=== PATIENT | female | born 1995 | race Caucasian/White ===

== ENCOUNTER 2020-04-21 02:28 | Emergency (ER) | payer OTHER, SELFPAY ==
[2020-04-21 02:38] VITALS: BP 122/74; PULSE 73; RESP 16; TEMP 36.8; O2SAT 100; BMI 32.9
[2020-04-21 02:51] VITALS: BP 122/74; PULSE 75; RESP 16; TEMP 36.8; O2SAT 100
--- NOTE | 2020-04-21 02:56 | ED.ABDPAIN ---
HPI - Abdominal Pain General Chief Complaint: Abdominal Pain Stated Complaint: LOWER ABD PAIN/NAUSEA Time Seen by Provider: 04/21/20 02:33 Source: patient Mode of arrival: ambulatory Limitations: no limitations History of Present Illness HPI narrative: This is a 24-year-old female without significant past medical history who presents with onset of acute left lower quadrant /pelvic pain this started approximately 4 hours ago is sharp in nature and constant and does not radiate anywhere. This is associated with nausea but no vomiting and patient denies fevers, chills, diarrhea, urinary pain/ burning / frequency. Her LMP is 2 weeks ago and patient states that there is no chance that she may be and denies any vaginal discharge. Of note, this is the 1st time this has happened to her. Related Data Home Medications Medication Instructions Recorded Confirmed sertraline 1 tab PO DAILY 04/21/20 04/21/20 Allergies Allergy/AdvReac Type Severity Reaction Status Date / Time fluoxetine [From PROZAC] Allergy Unknown UNKNOWN Verified 04/21/20 03:06 Review of Systems Review of Systems Pertinent positives and negatives as stated in HPI 10 point review systems is otherwise negative. Physical Exam Vital Signs: Vital Signs: Vital Signs Temp Pulse Resp BP Pulse Ox 04/21/20 02:51 98.2 F 75 16 122/74 100 04/21/20 02:38 98.2 F 73 16 122/74 100 Body Mass Index 32.9 VITAL SIGNS: Reviewed. GENERAL: Well developed, well nourished, in no acute distress. HEAD: Normocephalic/atraumatic, EYES: PERRLA, EOMI intact without pain, no nystagmus/pallor/icterus noted EARS: Ext canals without abnormality, TMs non-bulging and non-erythematous NOSE: Nares patent bilateral OROPHARYNX: no oral lesions noted, posterior pharynx clear and non-erythematous without noted tonsillar enlargement/erythema/exudates NECK: Supple, no adenopathy LUNGS: Normal breath sounds. No adventitious sounds or accessory muscle use. SpO2<100> CARDIOVASCULAR: Regular rate and rhythm without noted murmurs, no JVD or lower extremity edema. ABDOMEN: Soft, tenderness left lower quadrant, non-distended with bowel sounds. No rigidity. No guarding. No palpable masses or hernias noted MUSCULOSKELETAL: No tenderness, deformities, or effusions noted on gross inspection. EXTREMITIES: No cyanosis, clubbing or edema. SKIN: Inspection of the skin reveals no rashes, ulcerations, jaundice, pallor, or petechiae. NEUROLOGIC: Alert and oriented x 4. Strength and sensation to light touch were grossly intact x 4. Course Course Course Narrative: This is a 24-year-old female with history and clinical presentation most suggestive of possible renal colic, ovarian cyst, ovarian torsion, ectopic , mittelschmerz. Urinalysis, urine , transvaginal ultrasound are pending. review of all investigation negative for UTI, ectopic, ovarian torsion, ruptured ovarian cyst. All results and findings were discussed with patient at bedside and explained that this was a pain associated with midcycle. MDM - Abdominal Pain Lab Data Labs: Lab Results 04/21/20 Range/Units 02:48 Urine Color YELLOW Urine Appearance CLEAR Urine pH 6.5 (5.0-8.0) Ur Specific [place] >= 1.030 H (1.005-1.025) Urine Protein NEG (NEG-TRACE) MG/DL Urine Glucose (UA) NEG (NEG) MG/DL Urine Ketones NEG (NEG) MG/DL Urine Blood NEG (NEG) Urine Nitrite NEG (NEG) Ur Leukocyte Esterase NEG (NEG) Urine Test NEGATIVE (NEGATIVE) Discharge Plan Discharge Clinical Impression: Ki Patient Disposition: Home, Self-Care Instructions: Ki (ED) Additional Instructions: 1. Tylenol 1000 mg, orally, every 6 hours for discomfort. Do not exceed 4000 mg within 24 hours. 2. ibuprofen 400 mg, orally with milk or food, every 6 hours for discomfort. 3. you were noted to have the following findings on ultrasound with the radiologist recommending follow-up as outlined below: Bilateral ovarian follicles. Nonspecific 8 mm nodular shadow in echogenic focus within the right ovary which could correspond to a hemorrhagic cyst or corpus luteum. As precaution, recommendation is for a follow-up pelvic ultrasound in 6 or 10 weeks to assure resolution of this appearance. The patient and/or family acknowledge understanding of results (as applicable), diagnosis, treatment plan, need for follow up, and symptoms that should prompt a return to the emergency room. Prescriptions: No Action sertraline 100 mg tablet 1 tab PO DAILY RF: 0 Referrals: Lilian Solis MD [Primary Care Provider] - 2 days (For follow-up regarding right ovary findings On ultrasound.) [facility] Past Medical History Source: nursing notes reviewed Medical History Depression Hypothyroidism Social History Social History Smoking Status: Never smoker Use of substances other than those prescribed or required for medical reasons: No Advance Directives: No
--- NOTE | 2020-04-21 02:57 | US_ITS ---
EXAMINATIONS: ULTRASOUND PELVIC, COMPLETE AND DOPPLER INTERROGATION CLINICAL INFORMATION: Left-sided pelvic pain. Concern for torsion. COMPARISON: Abdominal pelvic CT from 05/16/2019. TECHNIQUE: Transabdominal and transvaginal imaging was performed. Transvaginal imaging was performed for further evaluation of the endometrium and adnexa. Doppler interrogation spectral analysis was performed. FINDINGS: The uterus is of normal size and echogenicity measuring 6.7 x 4.0 x 4.8 cm. A regular homogeneous endometrium is identified measuring 1.4 cm. Both ovaries are of normal size and echogenicity. The right measures 3.1 x 1.8 x 1.9 cm for a volume of 5.6 cc. There is an approximately 8 mm focus of oblong echogenicity without shadowing within the right ovary. The left measures 3.3 x 2.1 x 1.9 cm for a volume of 6.9 cc. Normal arterial and venous blood flow is present bilaterally. There is a small amount of likely physiologic pelvic free fluid. US/US transvaginal IMPRESSION: No evidence for ovarian torsion. Bilateral ovarian follicles. Nonspecific 8 mm nodular shadow in echogenic focus within the right ovary which could correspond to a hemorrhagic cyst or corpus luteum. As precaution, recommendation is for a follow-up pelvic ultrasound in 6 or 10 weeks to assure resolution of this appearance.
[2020-04-21 03:00] LABS: Glucose Urine UA NEG (NEG); Leukocyte Esterase Urine NEG (NEG); Nitrite Urine NEG (NEG); PH 6.5 (5.0-8.0); Specific Gravity - Urine >= 1.030 (1.005-1.025); Urine Blood NEG (NEG); Urine Ketones NEG (NEG); Urine Protein NEG (NEG-TRACE)
[2020-04-21 03:02] LABS: Appearance Urine CLEAR; Color Urine YELLOW; UPreg QC Valid YES; Urine Pregnancy NEGATIVE (NEGATIVE)
--- NOTE | 2020-04-21 03:09 | US_ITS ---
EXAMINATIONS: ULTRASOUND PELVIC, COMPLETE AND DOPPLER INTERROGATION CLINICAL INFORMATION: Left-sided pelvic pain. Concern for torsion. COMPARISON: Abdominal pelvic CT from 05/16/2019. TECHNIQUE: Transabdominal and transvaginal imaging was performed. Transvaginal imaging was performed for further evaluation of the endometrium and adnexa. Doppler interrogation spectral analysis was performed. FINDINGS: The uterus is of normal size and echogenicity measuring 6.7 x 4.0 x 4.8 cm. A regular homogeneous endometrium is identified measuring 1.4 cm. Both ovaries are of normal size and echogenicity. The right measures 3.1 x 1.8 x 1.9 cm for a volume of 5.6 cc. There is an approximately 8 mm focus of oblong echogenicity without shadowing within the right ovary. The left measures 3.3 x 2.1 x 1.9 cm for a volume of 6.9 cc. Normal arterial and venous blood flow is present bilaterally. There is a small amount of likely physiologic pelvic free fluid. US/US pelvic complete IMPRESSION: No evidence for ovarian torsion. Bilateral ovarian follicles. Nonspecific 8 mm nodular shadow in echogenic focus within the right ovary which could correspond to a hemorrhagic cyst or corpus luteum. As precaution, recommendation is for a follow-up pelvic ultrasound in 6 or 10 weeks to assure resolution of this appearance.
--- NOTE | 2020-04-21 03:09 | US_ITS ---
EXAMINATIONS: ULTRASOUND PELVIC, COMPLETE AND DOPPLER INTERROGATION CLINICAL INFORMATION: Left-sided pelvic pain. Concern for torsion. COMPARISON: Abdominal pelvic CT from 05/16/2019. TECHNIQUE: Transabdominal and transvaginal imaging was performed. Transvaginal imaging was performed for further evaluation of the endometrium and adnexa. Doppler interrogation spectral analysis was performed. FINDINGS: The uterus is of normal size and echogenicity measuring 6.7 x 4.0 x 4.8 cm. A regular homogeneous endometrium is identified measuring 1.4 cm. Both ovaries are of normal size and echogenicity. The right measures 3.1 x 1.8 x 1.9 cm for a volume of 5.6 cc. There is an approximately 8 mm focus of oblong echogenicity without shadowing within the right ovary. The left measures 3.3 x 2.1 x 1.9 cm for a volume of 6.9 cc. Normal arterial and venous blood flow is present bilaterally. There is a small amount of likely physiologic pelvic free fluid. US/US pelvic ovarian doppler IMPRESSION: No evidence for ovarian torsion. Bilateral ovarian follicles. Nonspecific 8 mm nodular shadow in echogenic focus within the right ovary which could correspond to a hemorrhagic cyst or corpus luteum. As precaution, recommendation is for a follow-up pelvic ultrasound in 6 or 10 weeks to assure resolution of this appearance.
[2020-04-21 04:00] VITALS: BP 112/68; PULSE 63; RESP 15; O2SAT 100
[2020-04-21] MEDS: Acetaminophen 325 MG TABLET 975 MG PO (04:49)
[2020-04-21] MEDS: Ketorolac Tromethamine 15 MG/ML VIAL IM (04:49)
--- NOTE | 2020-04-21 04:53 | PC.NURSE ---
patient given shot of toradol and became lightheaded and nausous. patient states that she often reacts to shots like this. bp 104/58
== END 2020-04-21 05:07 | disposition home or self-care (01) ==
PROVIDERS: Emergency Provider Student in an Organized Health Care Education/Training Program; PCP Internal Medicine
DX: N94.0 Mittelschmerz (principal); R10.30 Lower abdominal pain, unspecified; Z79.899 Other long term (current) drug therapy
CPT/HCPCS: 76830; 76856; 81003; 81025; 93975; 96372; 99284; J1885

== ENCOUNTER 2020-04-26 17:31 | Outpatient (REF) | payer OTHER, SELFPAY | END 2020-04-26 17:32 | disposition home or self-care (01) | LOC: HO.LAB 17:31 | PROVIDERS: Visit Provider Internal Medicine | DX: Z20.828 Contact with and (suspected) exposure to other viral communicable diseases (principal) | CPT/HCPCS: C9803; U0003 ==

== ENCOUNTER → 2020-08-18 11:04 | Outpatient (BNVA) | payer OTHER, SELFPAY | PROVIDERS: Visit Provider Obstetrics & Gynecology ==

== ENCOUNTER 2020-08-31 14:16 | Outpatient (REF) | payer OTHER, SELFPAY ==
[2020-09-01 09:54] LABS: BV Int Neg Control Negative (Negative); BV Int Pos Control Positive (Positive)
[2020-09-01 10:13] LABS: CT PCR NOT DETECTED (Not Detect.); NG PCR NOT DETECTED (Not Detect.)
== END 2020-08-31 14:17 | disposition home or self-care (01) ==
LOC: HO.LAB 14:16
PROVIDERS: PCP Internal Medicine; Visit Provider Obstetrics & Gynecology
DX: Z01.411 Encounter for gynecological examination (general) (routine) with abnormal findings (principal); N76.0 Acute vaginitis; B96.89 Other specified bacterial agents as the cause of diseases classified elsewhere
CPT/HCPCS: 87480; 87491; 87510; 87591; 87660; 88142

== ENCOUNTER 2020-09-16 11:44 | Outpatient (REF) | payer OTHER, SELFPAY ==
[2020-09-16 13:35] LABS: Influenza A PCR NEGATIVE (Negative); Influenza B PCR NEGATIVE (Negative); Resp Syncy Virus RNA Qual PCR NEGATIVE (Negative); SARS COV2 PCR INHOUSE NEGATIVE (Negative)
== END 2020-09-16 11:45 | disposition home or self-care (01) ==
LOC: HO.LNP 11:44
PROVIDERS: Visit Provider Nurse Practitioner Family
DX: R50.9 Fever, unspecified (principal); Z20.822 Contact with and (suspected) exposure to COVID-19
CPT/HCPCS: 0241U

== ENCOUNTER 2020-12-22 16:44 | Outpatient (REF) | payer OTHER, SELFPAY | END 2020-12-22 16:45 | disposition home or self-care (01) | LOC: HO.LNP 16:44 | PROVIDERS: Visit Provider Hospitalist | DX: R30.0 Dysuria (principal) | CPT/HCPCS: 87086 ==

== ENCOUNTER 2021-07-06 08:07 | Outpatient (REF) | payer OTHER, SELFPAY ==
[2021-07-06 13:08] LABS: CT PCR NOT DETECTED (Not Detect.); NG PCR NOT DETECTED (Not Detect.)
[2021-07-07 08:57] LABS: BV Int Neg Control Negative (Negative); BV Int Pos Control Positive (Positive)
== END 2021-07-06 08:08 | disposition home or self-care (01) ==
LOC: HO.LAB 08:07
PROVIDERS: PCP Internal Medicine; Visit Provider Obstetrics & Gynecology
DX: Z01.419 Encounter for gynecological examination (general) (routine) without abnormal findings (principal); Z11.3 Encounter for screening for infections with a predominantly sexual mode of transmission; Z11.4 Encounter for screening for human immunodeficiency virus [HIV]; Z20.2 Contact with and (suspected) exposure to infections with a predominantly sexual mode of transmission
CPT/HCPCS: 87480; 87491; 87510; 87591; 87660

== ENCOUNTER 2021-07-06 08:29 | Outpatient (REF) | payer OTHER, SELFPAY ==
[2021-07-06 09:54] LABS: HBsAGNum1 0.27 S/CO (0.00-0.99); HIV AB/AG Nonreactive (Nonreactive); HIV Num 1 0.08 S/CO (0.00-0.99); Hepatitis B Surface Antigen Negative (Negative); ~HepC Num1 0.15 S/CO (0.00-0.79); ~Hepatitis C Antibody Nonreactive (Nonreactive)
[2021-07-07 08:25] LABS: Syphilis Screen Nonreactive (Nonreactive)
== END 2021-07-06 08:30 | disposition home or self-care (01) ==
LOC: HO.LAB 08:29
PROVIDERS: PCP Internal Medicine; Visit Provider Obstetrics & Gynecology
DX: Z01.84 Encounter for antibody response examination (principal); Z11.4 Encounter for screening for human immunodeficiency virus [HIV]
CPT/HCPCS: 36415; 86780; 86803; 87340; 87389

== ENCOUNTER 2021-12-15 12:52 | Emergency (ER) | payer OTHER, SELFPAY ==
--- NOTE | ~2021-12-15 | XR_ITS ---
EXAMINATION: XR CHEST CLINICAL INFORMATION: Fever COMPARISON: None TECHNIQUE: Frontal view of the chest was obtained. FINDINGS: The cardiomediastinal silhouette is within normal limits. The lungs are well expanded. Mild peribronchial thickening. There is no focal consolidation, edema, or effusion. No pneumothorax. No acute osseous abnormality. XR/XR chest 1V IMPRESSION: Mild peribronchial thickening could reflect infectious or inflammatory process. No focal consolidation is seen.
[2021-12-15 13:07] VITALS: BP 126/77; PULSE 133; RESP 16; TEMP 38.6; O2SAT 97; BMI 43.9
[2021-12-15] MEDS: Acetaminophen 325 MG TABLET 650 MG PO (13:14)
[2021-12-15 13:29] LABS: Appearance Urine CLEAR; Color Urine YELLOW; Glucose Urine UA NEG (NEG); Leukocyte Esterase Urine NEG (NEG); MANUAL DIFF FLAG NO; Nitrite Urine NEG (NEG); PH 8.5 (5.0-8.0); Specific Gravity - Urine 1.015 (1.005-1.025); UACC Culture Trigger NO; Urine Blood 1+ (NEG); Urine Ketones NEG (NEG); Urine Protein NEG (NEG-TRACE)
[2021-12-15 13:30] LABS: UPreg QC Valid YES; Urine Pregnancy NEGATIVE (NEGATIVE)
[2021-12-15 13:31] LABS: Basophils Percent Auto 0.2 % (0-2); Eosinophils Absolute Auto 0.1 X10*3/uL (0.0-0.4); Eosinophils Percent Auto 0.7 % (0-4); Hematocrit 39.1 % (37.0-47.0); Hemoglobin 12.8 g/dl (12.0-16.0); Imm Gran Abs Auto 0.04 X10*3/uL (0.00-0.03); Imm Gran Pct Auto 0.3 % (0.0-0.4); Lymphocytes Absolute Auto 1.1 X10*3/uL (1.2-4.9); Lymphocytes Percent Auto 7.2 % (20-40); Mean Corpuscular HGB Conc 32.7 g/dl (31.0-35.0); Mean Corpuscular Hemoglobin 27.5 pg (27.0-33.0); Mean Corpuscular Volume 83.9 fL (80.0-98.0); Mean Platelet Volume 9.4 fL (9.4-12.3); Monocytes Absolute Auto 0.5 X10*3/uL (0.1-1.2); Monocytes Percent Auto 3.3 % (2-11); Neutrophils Absolute Auto 13.2 x10*3/uL (2.0-8.3); Neutrophils Percent Auto 88.3 % (45-73); Platelet Count 308 X10*3/uL (160-400); Red Blood Count 4.66 X10*6/uL (4.20-5.50); Red Cell Distribution Width 13.1 % (11.0-16.0); White Blood Count 14.9 X10*3/uL (4.8-10.8)
[2021-12-15 13:38] LABS: RBC Urine 0-2 /HPF (0); Squamous Epithelial Cell Urine 1+ /LPF; UACC CULT YES
[2021-12-15 13:46] LABS: Anion Gap 13 (12-20); Blood Urea Nitrogen 13 mg/dL (9-16); Carbon Dioxide 22 mmol/L (22-29); Chloride 104 mmol/L (96-108); Creatinine Clr Calc Pharmacy 119.7; Estimated Glomerular Filt Rate > 60; Glucose Random 111 mg/dL (60-115); Potassium 4.3 mmol/L (3.3-5.1); Sodium 135 mmol/L (135-145)
--- NOTE | 2021-12-15 17:10 | ED.GENADULT ---
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 patient temperature was 101.4 degrees complaining of nausea no cough no vomiting or diarrhea no abdominal pain no chest pain no rash patient in the home COVID test which was negative no urinary complaints Related Data Home Medications Medication Instructions Recorded Confirmed sertraline 100 mg tablet 1 tab PO DAILY 04/21/20 12/22/20 levothyroxine 75 mcg capsule 75 mcg PO DAILY 08/31/20 12/22/20 metronidazole 0.75 % vaginal gel g vaginal BEDTIME 09/16/20 12/22/20 Previous Rx's Medication Instructions Recorded amoxicillin 500 mg-potassium 1 tab PO BID 7 days #14 tabs 09/16/20 clavulanate 125 mg tablet sulfamethoxazole 800 1 tab PO BID #14 tabs 12/22/20 mg-trimethoprim 160 mg tablet (Bactrim DS) metronidazole 0.75 % vaginal gel 1 appful vaginal BEDTIME 5 days 07/07/21 (Metrogel Vaginal) #70 grams metronidazole 500 mg tablet 500 mg PO BID 7 days #14 tabs 09/06/21 cefuroxime axetil 500 mg tablet 500 mg PO BID 10 days #20 tabs 12/15/21 ibuprofen 600 mg tablet 600 mg PO Q6H PRN pain #30 tabs 12/15/21 Allergies Allergy/AdvReac Type Severity Reaction Status Date / Time fluoxetine [From PROZAC] Allergy Unknown UNKNOWN Verified 07/06/21 08:17 Review of Systems Review of Systems: Yes all other systems are reviewed and are negative PMFSH Past Medical History Medical History CELESTE I (cervical intraepithelial neoplasia I) Depression Hypothyroidism Family History Family History Maternal Aunt Colon cancer Maternal Grandmother Colon cancer Uterine cancer Cervical cancer Maternal Grandfather Bladder cancer Social History Social History Alcohol intake: never Advance Directives: No Advance Directives Information Provided: No Gender identity: Female Physical Exam ED Vital Signs: Vital Signs - 24 hr 12/15/21 13:07 12/15/21 17:55 Temperature 101.4 F H 98.5 F Pulse Rate 133 H 92 Respiratory Rate 16 14 Blood Pressure 126/77 110/64 Pulse Oximetry 97 99 Oxygen Delivery Method Room Air Room Air BMI result Body Mass Index 43.9 Appearance: Alert. Oriented X3. No acute distress. Eyes: PERRLA, No Nystagmus ENT: Pharynx normal. Oral Mucosa moist Neck: Normal inspection. Neck supple. CVS: Normal heart rate and rhythm. Pulses normal. Respiratory: No respiratory distress. Equal air entry bilateral, no wheezing/rales/rhonchi Abdomen: Soft and nontender. Bowel sounds are present, no mass palpable, no CVA tenderness Skin: Skin warm and dry. Normal skin color. Normal skin turgor. Extremities: No lower extremity edema. No calf tenderness Neuro: Oriented X 3. Medical Decision Making MDM Narrative Medical decision making narrative: Patient with fever leukocytosis chest x-ray showing peribronchial inflammation patient denies any cough PCR negative for COVID influenza will discharge patient home on Ceftin for bronchitis Lab Data Lab results reviewed: Yes I reviewed the patient's lab results. Result diagrams: 12/15/21 13:22 12/15/21 13:22 Labs: Lab Results 12/15/21 12/15/21 12/15/21 Range/Units 13:22 13:22 13:22 WBC 14.9 H (4.8-10.8) X10*3/uL RBC 4.66 (4.20-5.50) X10*6/uL Hgb 12.8 (12.0-16.0) g/dl Hct 39.1 (37.0-47.0) % MCV 83.9 (80.0-98.0) fL MCH 27.5 (27.0-33.0) pg MCHC 32.7 (31.0-35.0) g/dl RDW 13.1 (11.0-16.0) % Plt Count 308 (160-400) X10*3/uL MPV 9.4 (9.4-12.3) fL Immature Gran % (Auto) 0.3 (0.0-0.4) % Neut % (Auto) 88.3 H (45-73) % Lymph % (Auto) 7.2 L (20-40) % [place] % (Auto) 3.3 (2-11) % Eos % (Auto) 0.7 (0-4) % Baso % (Auto) 0.2 (0-2) % Lymph # (Auto) 1.1 L (1.2-4.9) X10*3/uL [place] # (Auto) 0.5 (0.1-1.2) X10*3/uL Eos # (Auto) 0.1 (0.0-0.4) X10*3/uL Baso # (Auto) 0.0 (0.0-0.2) X10*3/uL Abs Immat Gran (auto) 0.04 H (0.00-0.03) X10*3/uL Absolute Neuts (auto) 13.2 H (2.0-8.3) x10*3/uL Absolute Nucleated RBC 0.000 (0.0-0.012) X10*3/uL Nucleated RBC % (auto) 0.0 (0.0-0.2) /100WBC Sodium 135 (135-145) mmol/L Potassium 4.3 (3.3-5.1) mmol/L Chloride 104 (96-108) mmol/L Carbon Dioxide 22 (22-29) mmol/L Anion Gap 13 (12-20) BUN 13 (9-16) mg/dL Creatinine 0.82 (0.5-1.4) mg/dL Estim Creat Clear Calc 119.7 Estimated GFR > 60 Random Glucose 111 (60-115) mg/dL Calcium 9.0 (8.4-10.2) mg/dL Total Bilirubin 0.5 (0.0-1.0) mg/dL Direct Bilirubin 0.2 (0.0-0.5) mg/dL AST 28 (5-31) U/L ALT 20 (0-31) U/L Alkaline Phosphatase 108 (39-117) U/L Total Protein 7.5 (6.5-8.0) g/dL Albumin 4.3 (3.5-5.0) g/dL Lipase 25 (8-78) U/L Urine Color YELLOW Urine Appearance CLEAR Urine pH 8.5 H (5.0-8.0) Ur Specific [place] 1.015 (1.005-1.025) Urine Protein NEG (NEG-TRACE) MG/DL Urine Glucose (UA) NEG (NEG) MG/DL Urine Ketones NEG (NEG) MG/DL Urine Blood 1+ H (NEG) Urine Nitrite NEG (NEG) Ur Leukocyte Esterase NEG (NEG) Urine RBC 0-2 (0) /HPF Urine WBC 5-9 H (0-4) /HPF Ur Squamous Epith Cells 1+ /LPF Urine Bacteria NONE /LPF Urine Test (NEGATIVE) COVID-19 ([place]) (Negative) COVID-19 Clin Com Influenza Type A (PCR) (Negative) Influenza Type B (PCR) (Negative) RSV RNA Qual (PCR) (Negative) SARS-CoV-2 RNA (RT-PCR) (Negative) 12/15/21 12/15/21 12/15/21 Range/Units 13:22 17:53 18:58 WBC (4.8-10.8) X10*3/uL RBC (4.20-5.50) X10*6/uL Hgb (12.0-16.0) g/dl Hct (37.0-47.0) % MCV (80.0-98.0) fL MCH (27.0-33.0) pg MCHC (31.0-35.0) g/dl RDW (11.0-16.0) % Plt Count (160-400) X10*3/uL MPV (9.4-12.3) fL Immature Gran % (Auto) (0.0-0.4) % Neut % (Auto) (45-73) % Lymph % (Auto) (20-40) % [place] % (Auto) (2-11) % Eos % (Auto) (0-4) % Baso % (Auto) (0-2) % Lymph # (Auto) (1.2-4.9) X10*3/uL [place] # (Auto) (0.1-1.2) X10*3/uL Eos # (Auto) (0.0-0.4) X10*3/uL Baso # (Auto) (0.0-0.2) X10*3/uL Abs Immat Gran (auto) (0.00-0.03) X10*3/uL Absolute Neuts (auto) (2.0-8.3) x10*3/uL Absolute Nucleated RBC (0.0-0.012) X10*3/uL Nucleated RBC % (auto) (0.0-0.2) /100WBC Sodium (135-145) mmol/L Potassium (3.3-5.1) mmol/L Chloride (96-108) mmol/L Carbon Dioxide (22-29) mmol/L Anion Gap (12-20) BUN (9-16) mg/dL Creatinine (0.5-1.4) mg/dL Estim Creat Clear Calc Estimated GFR Random Glucose (60-115) mg/dL Calcium (8.4-10.2) mg/dL Total Bilirubin (0.0-1.0) mg/dL Direct Bilirubin (0.0-0.5) mg/dL AST (5-31) U/L ALT (0-31) U/L Alkaline Phosphatase (39-117) U/L Total Protein (6.5-8.0) g/dL Albumin (3.5-5.0) g/dL Lipase (8-78) U/L Urine Color Urine Appearance Urine pH (5.0-8.0) Ur Specific [place] (1.005-1.025) Urine Protein (NEG-TRACE) MG/DL Urine Glucose (UA) (NEG) MG/DL Urine Ketones (NEG) MG/DL Urine Blood (NEG) Urine Nitrite (NEG) Ur Leukocyte Esterase (NEG) Urine RBC (0) /HPF Urine WBC (0-4) /HPF Ur Squamous Epith Cells /LPF Urine Bacteria /LPF Urine Test NEGATIVE (NEGATIVE) COVID-19 ([place]) Negative (Negative) COVID-19 Clin Com See Note Influenza Type A (PCR) NEGATIVE (Negative) Influenza Type B (PCR) NEGATIVE (Negative) RSV RNA Qual (PCR) NEGATIVE (Negative) SARS-CoV-2 RNA (RT-PCR) NEGATIVE (Negative) Discharge Plan Discharge Clinical Impression: Fever, Bronchitis Patient Disposition: Home, Self-Care Instructions: Fever in Adults (ED), Acute Bronchitis (ED) Additional Instructions: Keep hydrated Tylenol/Motrin for fever Antibiotic as prescribed Follow with PCP if not better Prescriptions: New cefuroxime axetil 500 mg tablet 500 mg PO BID 10 Days Qty: 20 0RF ibuprofen 600 mg tablet 600 mg PO Q6H PRN (Reason: pain) Qty: 30 0RF No Action metronidazole [Metrogel Vaginal] 0.75 % gel 1 appful vaginal BEDTIME 5 Days Qty: 70 0RF metronidazole 500 mg tablet 500 mg PO BID 7 Days Qty: 14 0RF sertraline 100 mg tablet 1 tab PO DAILY metronidazole 0.75 % gel vaginal BEDTIME amoxicillin-pot clavulanate 500-125 mg tablet 1 tab PO BID 7 Days Qty: 14 0RF sulfamethoxazole-trimethoprim [Bactrim DS] 800-160 mg tablet 1 tab PO BID Qty: 14 0RF levothyroxine 75 mcg capsule 75 mcg PO DAILY Interventions: ED Discharge Assessment Last Done: 12/15/21 21:24 Discharge Date/Time: 12/15/21 21:25
[2021-12-15 17:55] VITALS: BP 110/64; PULSE 92; RESP 14; TEMP 36.9; O2SAT 99
[2021-12-15] MEDS: 0.9 % Sodium Chloride 1,000 ML 999 ML IV (18:23)
[2021-12-15 18:28] LABS: COVID-19 Test Negative (Negative)
[2021-12-15] MEDS: ondansetron HCL 4 MG/2 ML VIAL IVPUSH (18:31)
[2021-12-15 19:11] LABS: Alanine Aminotransferase 20 U/L (0-31); Albumin Level 4.3 g/dL (3.5-5.0); Alkaline Phosphatase 108 U/L (39-117); Aspartate Amino Transferase 28 U/L (5-31); Bilirubin Direct 0.2 mg/dL (0.0-0.5); Bilirubin Total 0.5 mg/dL (0.0-1.0); Lipase 25 U/L (8-78); Total Protein 7.5 g/dL (6.5-8.0)
[2021-12-15 19:39] LABS: Influenza A PCR NEGATIVE (Negative); Influenza B PCR NEGATIVE (Negative); Resp Syncy Virus RNA Qual PCR NEGATIVE (Negative); SARS COV2 PCR INHOUSE NEGATIVE (Negative)
--- NOTE | 2021-12-15 21:20 | PC.NURSE ---
We assumed nursing care of this pt at 1900. I first assessed her at time of DC. She is alert, oriented x 3, calm and cooperative. She makes eye contact with RN. She is ambulatory independently and with steady gait. She verbalized an understanding of all DC orders and she ambulated out of the ED independently and with steady gait.
== END 2021-12-15 21:25 | disposition home or self-care (01) ==
PROVIDERS: Emergency Provider Internal Medicine; PCP Internal Medicine
DX: J40 Bronchitis, not specified as acute or chronic (principal); R42 Dizziness and giddiness; R50.9 Fever, unspecified; M79.10 Myalgia, unspecified site; Z20.822 Contact with and (suspected) exposure to COVID-19; Z79.899 Other long term (current) drug therapy
CPT/HCPCS: 0241U; 36415; 71045; 80048; 80076; 81001; 81025; 83690; 85025; 87086; 87635; 96361; 96374; 99283; 99284; J2405

== ENCOUNTER 2022-02-28 15:11 | Outpatient (REF) | payer OTHER, SELFPAY ==
[2022-02-28 19:10] LABS: CT PCR NOT DETECTED (Not Detect.); NG PCR NOT DETECTED (Not Detect.)
[2022-03-01 12:23] LABS: BV Int Neg Control Negative (Negative); BV Int Pos Control Positive (Positive)
[2022-03-25 14:03] LABS: HPV mRNA E6/E7 rflx Not Detected (Not Detected)
== END 2022-02-28 15:12 | disposition home or self-care (01) ==
LOC: HO.LNP 15:11
PROVIDERS: Visit Provider Advanced Practice Midwife
DX: Z01.419 Encounter for gynecological examination (general) (routine) without abnormal findings (principal); Z11.3 Encounter for screening for infections with a predominantly sexual mode of transmission
CPT/HCPCS: 87480; 87491; 87510; 87591; 87624; 87660; 88142

== ENCOUNTER 2022-03-01 13:00 | Outpatient (REF) | payer OTHER, SELFPAY ==
[2022-03-01 14:08] LABS: Hematocrit 38.1 % (37.0-47.0); Hemoglobin 12.5 g/dl (12.0-16.0); Mean Corpuscular HGB Conc 32.8 g/dl (31.0-35.0); Mean Corpuscular Hemoglobin 27.8 pg (27.0-33.0); Mean Corpuscular Volume 84.7 fL (80.0-98.0); Platelet Count 310 X10*3/uL (160-400); Red Cell Distribution Width 12.8 % (11.0-16.0)
[2022-03-01 14:27] LABS: Glucose Random 95 mg/dL (60-115)
[2022-03-01 14:54] LABS: Thyroid Stimulating Hormone 3.45 uIU/mL (0.32-4.0)
[2022-03-02 07:33] LABS: HBsAGNum1 0.37 S/CO (0.00-0.99); HIV AB/AG Nonreactive (Nonreactive); HIV Num 1 0.07 S/CO (0.00-0.99); Hepatitis B Surface Antigen Negative (Negative); ~Hepatitis C Antibody Nonreactive (Nonreactive)
[2022-03-02 08:18] LABS: Syphilis Screen Nonreactive (Nonreactive)
== END 2022-03-01 13:01 | disposition home or self-care (01) ==
LOC: HO.HMGCLDS 13:00
PROVIDERS: PCP Internal Medicine; Visit Provider Advanced Practice Midwife
DX: Z11.4 Encounter for screening for human immunodeficiency virus [HIV] (principal); Z11.3 Encounter for screening for infections with a predominantly sexual mode of transmission; N87.0 Mild cervical dysplasia
CPT/HCPCS: 36415; 82947; 84443; 85027; 86780; 86803; 87340; 87389

== ENCOUNTER → 2022-04-06 09:13 | Outpatient (BNVA) | payer OTHER, SELFPAY | PROVIDERS: PCP Internal Medicine; Visit Provider Advanced Practice Midwife | DX: O99.210 Obesity complicating pregnancy, unspecified trimester (principal); E66.01 Morbid (severe) obesity due to excess calories; O99.891 Other specified diseases and conditions complicating pregnancy; N87.0 Mild cervical dysplasia; O92.29 Other disorders of breast associated with pregnancy and the puerperium; Z3A.00 Weeks of gestation of pregnancy not specified | CPT/HCPCS: 81025 ==

== ENCOUNTER 2022-04-20 12:46 | Outpatient (REF) | payer OTHER, SELFPAY ==
--- NOTE | ~2022-04-20 | US_ITS ---
EXAMINATION: US DIAGNOSTIC ULTRASOUND BREAST, RIGHT US DIAGNOSTIC ULTRASOUND BREAST, LEFT CLINICAL INFORMATION: 26-year-old with palpable areas noted at routine clinical exam upper outer right breast and upper inner left breast, respectively. Patient 10 weeks. COMPARISON: Right breast ultrasound 05/01/2019, 03/23/2019, bilateral breast ultrasound 09/13/2015.. TECHNIQUE: Ultrasound of both breasts is targeted to the areas of clinical concern. Grayscale imaging and color Doppler are performed without and with harmonics. FINDINGS: Right: There is a macrolobulated mildly hypoechoic solid mass 11:00 position 6 cm from nipple measuring approximately 2.3 x 0.8 x 1.9 cm. There is no cystic mass or architectural abnormality or focal duct ectasia. Left: There is no focal suspicious finding. There is no cystic or solid mass, architectural abnormality, or duct ectasia. Results are discussed with the patient at time of visit. 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 Management options discussed. Patient is in favor of ultrasound-guided core biopsy to confirm benignity. Left breast may be managed based on the clinical impression. Results are called to office (JOSEY Henning) for provider Tania Woodson CNM on 04/20/2022. US/US breast LT limited IMPRESSION: Right: -Macrolobulated solid mass 11:00 position measuring 2.3 cm, likely fibroadenoma. Left: -Unremarkable targeted left breast ultrasound. ASSESSMENT: BI-RADS 4: Suspicious (subcategory 4A: Low suspicion for malignancy) RECOMMENDATION: -Ultrasound-guided core biopsy right breast mass. This patient's information was entered into a reminder system with a target due date for their next mammogram.
--- NOTE | ~2022-04-20 | US_ITS ---
EXAMINATION: US DIAGNOSTIC ULTRASOUND BREAST, RIGHT US DIAGNOSTIC ULTRASOUND BREAST, LEFT CLINICAL INFORMATION: 26-year-old with palpable areas noted at routine clinical exam upper outer right breast and upper inner left breast, respectively. Patient 10 weeks. COMPARISON: Right breast ultrasound 05/01/2019, 03/23/2019, bilateral breast ultrasound 09/13/2015.. TECHNIQUE: Ultrasound of both breasts is targeted to the areas of clinical concern. Grayscale imaging and color Doppler are performed without and with harmonics. FINDINGS: Right: There is a macrolobulated mildly hypoechoic solid mass 11:00 position 6 cm from nipple measuring approximately 2.3 x 0.8 x 1.9 cm. There is no cystic mass or architectural abnormality or focal duct ectasia. Left: There is no focal suspicious finding. There is no cystic or solid mass, architectural abnormality, or duct ectasia. Results are discussed with the patient at time of visit. 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 Management options discussed. Patient is in favor of ultrasound-guided core biopsy to confirm benignity. Left breast may be managed based on the clinical impression. Results are called to office (JOSEY Henning) for provider Tania Woodson CNM on 04/20/2022. US/US breast RT limited IMPRESSION: Right: -Macrolobulated solid mass 11:00 position measuring 2.3 cm, likely fibroadenoma. Left: -Unremarkable targeted left breast ultrasound. ASSESSMENT: BI-RADS 4: Suspicious (subcategory 4A: Low suspicion for malignancy) RECOMMENDATION: -Ultrasound-guided core biopsy right breast mass. This patient's information was entered into a reminder system with a target due date for their next mammogram.
== END 2022-04-20 12:47 | disposition home or self-care (01) ==
LOC: HO.MAMMO 12:46
PROVIDERS: Visit Provider Internal Medicine
DX: N63.11 Unspecified lump in the right breast, upper outer quadrant (principal); N63.12 Unspecified lump in the right breast, upper inner quadrant
CPT/HCPCS: 76642

== ENCOUNTER 2022-04-23 09:07 | Outpatient (REF) | payer OTHER, SELFPAY ==
--- NOTE | ~2022-04-23 | US_ITS ---
EXAMINATION: ULTRASOUND GUIDED CORE BIOPSY BREAST, RIGHT CLINICAL INFORMATION: 26-year-old with palpable solid mass right breast 11:00 position, 2.3 cm in greatest dimension. 10 weeks . Probable fibroadenoma. COMPARISON: Targeted right breast ultrasound 04/20/2022. FINDINGS: Proper informed consent is obtained from the patient after discussion of the procedure, potential risks and complications, and alternatives. Patient was given an opportunity for questions. The patient appeared to understand. The patient consented to the procedure and signed the consent form. GUIDANCE: Ultrasound-guided; aseptic technique. LESION: Macrolobulated mildly hypoechoic solid mass 11:00 position 6 cm from nipple measuring 2.3 x 0.8 x 1.9 cm, suspect fibroadenoma. APPROACH: Lateral medial. ANESTHESIA: 9 mL carbonated 1% lidocaine. DERMATOTOMY: Single skin gabby dermatotomy performed. NEEDLE: 14-gauge Achieve core biopsy device with 13.5-gauge co-axial guide needle. CORES: 5. CLIP: HydroMARK; shape: open coil. The patient tolerated the procedure well. No immediate complications. Home instructions reviewed with the patient. Final pathology results are pending. US/US breast ndl core biopsy RT IMPRESSION: 1. Status post ultrasound-guided core biopsy right breast. 2. Clip placed: HydroMARK; shape: open coil. 3. Pathology pending. An addendum report will be issued.
[2022-04-23] MEDS: Lidocaine HCl 1 % 20 ML VIAL 9 ML SUBCUT (10:23)
[2022-04-23] MEDS: Sodium Bicarbonate 8.4% 50 MEQ/50 ML VIAL SUBCUT (10:24)
== END 2022-04-23 09:08 | disposition home or self-care (01) ==
LOC: HO.MAMMO 09:07
PROVIDERS: PCP Internal Medicine; Visit Provider Surgery
DX: N63.11 Unspecified lump in the right breast, upper outer quadrant (principal)
CPT/HCPCS: 19083; 88305; A4648

== ENCOUNTER 2024-07-28 08:53 | Day surgery (SDC) | payer BC, SELFPAY ==
[2024-07-24 13:55] VITALS: BMI 43.0
--- NOTE | 2024-07-27 09:12 | HO.ANESPROP2 ---
HPI - Anesthesia Eval Consult details Narrative: 29yo F for Colonoscopy PMFSH Active Problems Active Problems: All Active Problems at early stage (Acute) Obesity, morbid, BMI 40.0-49.9 (Acute) Bacterial vaginosis (Acute) Family history of ovarian cancer (Acute) Breast mass, right (Acute) Hypothyroidism (Acute) CELESTE I (cervical intraepithelial neoplasia I) (Acute) Past Medical History Medical History (Updated 08/10/24 @ 08:54 by Lilian Solis MD) Family history of Murry syndrome Family history of ovarian cancer Breast mass, right CELESTE I (cervical intraepithelial neoplasia I) Hypothyroidism Depression Family History Family History Maternal Aunt Colon cancer Maternal Grandmother Colon cancer Uterine cancer Cervical cancer Maternal Grandfather Bladder cancer Surgical History Surgical History (Updated 07/24/24 @ 13:50 by Unique Rees RN) History of esophagogastroduodenoscopy (EGD) H/O colonoscopy History of tubal ligation No pertinent past surgical history Social History Social History Housing: Apartment Alcohol intake: never Patient Tobacco Use Status: Never used Tobacco e-Cigarette/Vaping Use: Never Used Current occupational status: employed Gender identity: Female Cognitive needs: No Hearing needs: No Vision needs: Yes Meds Allergies Allergy/AdvReac Type Severity Reaction Status Date / Time fluoxetine [From PROZAC] Allergy Unknown UNKNOWN Verified 04/23/22 08:29 Home Medications ?Medication ?Instructions ?Recorded ?Confirmed ?Last Taken ?Type No Known Home Meds 07/24/24 07/24/24 Unknown History Exam Height,Weight and Vital Signs: Height 5 ft 2.5 in Weight 108.318 kg Assessment and Plan Assessment Anesthesia Assessment: Chart Reviewed
[2024-07-28 09:35] VITALS: BP 139/92; PULSE 84; RESP 16; TEMP 36.5; O2SAT 100; BMI 42.6
--- OUTSIDE RECORDS SUMMARY | 2024-07-28 09:41 | XMS_ITS ---
Author Organization [facility] Address [address] [place] [address] Care Team Providers Care Manager Enterprise Name Role Phone Irma HOWARD, Lilian Primary Care Provider Lindsey Dalton Jr, Raghav Landa REASON FOR VISIT screening Encounters Encounter Location Date Provider Diagnosis [facility] [place] Outpatient [address] [place] [id number] 07/28/2024 Raghav Dalton Jr PLAN OF TREATMENT Next Appt Details Provider Name:Raghav wilkins Jr, 07/28/2024 10:30:00 AM, [address] [place] [address], [phone],
--- OUTSIDE RECORDS SUMMARY | 2024-07-28 09:41 | XMS_ITS | Patient Health Record ---
Author Organization [facility] Address [address] [place] [address] Care Team Providers Care Color Coater Name Role Phone Irma HOWARD, Lilian Primary Care Provider Raghav Evans Jr Unavailable ALLERGIES Allergen (clinical drug ingredient) Drug/Non Drug Allergy documented on EMR Reaction Allergy Type Onset Date Status fluoxetine Prozac Unknown Drug Allergy Active REASON FOR REFERRAL No Information MEDICATIONS Medication SIG (Take, Route, Frequency, Duration) Notes Start Date End Date Status MiraLax (colon prep) 17 GM/SCOOP mixed with Gatorade or Crystal Light Orally begin at 5:00 p.m. the day before the procedure for 1 day 07/13/2024 Active IMMUNIZATIONS Vaccine Route Administration Date Status Comme nts Influenza Unknown 07/09/2019 Administered Influenza Unknown 07/13/2024 Refused SOCIAL HISTORY Sex Assigned At : Social History Observation Description Sex Assigned At Unknown PROBLEMS Problem Type ICD Code Onset Dates Problem Status W/U Status Risk SNOMED Code Notes Problem Slow transit constipation (K59.01) Active confirmed 19645762 Problem Rectal bleeding (K62.5) Active confirmed 81491667 Problem Diarrhea, unspecified type (R19.7) Active confirmed 04595395 Problem Nausea (R11.0) Active confirmed 1127580 07 Problem Hematemesis with nausea (K92.0) Active confirmed 8983559 Problem Weight loss (R63.4) Active confirmed 78709432 Problem Colon cancer screening (Z12.11) Active confirmed 761096871 Problem Encounter for other preprocedural examination (Z01.818) Active confirmed 794688319 Problem Personal history of colonic polyps (Z86.0100) Active confirmed 933325632 Problem Family history of colon cancer (Z80.0) Active confirmed 681482052 VITAL SIGNS Temperature 97.8 degrees Fahrenheit 07/13/2024 Blood pressure diastolic 01 mm Hg 07/13/2024 Height 62.5 in 07/13/2024 Blood pressure systolic 001 mm Hg 07/13/2024 Weight 238.8 lbs 07/13/2024 BMI 42.98 kg/m2 07/13/2024 Encounters Encounter Location Date Provider Diagnosis [facility] [place] [address] [place] [id number] 07/28/2024 Raghav Dalton Jr [facility] [address] [place] [address] 07/13/2024 Raghav Dalton Jr Colon cancer screening Z12.11 ; Encounter for other preprocedural examination Z01.818 ; Personal history of colonic polyps Z86.0100 and Family history of colon cancer Z80.0 ASSESSMENTS Encounter Date Diagnosis Assessment Notes Treatment Notes Treatment Clinical Notes 07/13/2024 Colon cancer screening (ICD-10 - Z12.11) Colonoscopy material was printed 07/13/2024 Encounter for other preprocedural examination (ICD-10 - Z01.818) 07/13/2024 Personal history of colonic polyps (ICD-10 - Z86.0100) 07/13/2024 Family history of colon cancer (ICD-10 - Z80.0) PLAN OF TREATMENT Pending Test Test Name Order Date LIVER PROFILE 01/08/2018 LIPASE 01/08/2018 CBC w/o DIFF 01/08/2018 CLOSTRIDIUM DIFF TOXIN A&B (C DIFF) 12/15 STOOL WBC 12/25/2016 CELIAC DISEASE ANTIBODY PANEL 01/08/2018 GIARDIA AG, STOOL EIA 12/25/2016 OVA & PARASITES (O&P) 12/25/2016 CULTURE, STOOL 12/25/2016 TSH REFLEX FREE T4 01/08/2018 Future Test Test Name Order Date COLONOSCOPY 09/23/2015 UPPER GI ENDOSCOPY 01/08/2018 COLONOSCOPY 07/13/2024 Next Appt Details Provider Name:Raghav wilkins Jr, 07/28/2024 10:30:00 AM, [address] [place] [address] , [place], [place], [phone], Insurance Providers Payer Name Payer Address Payer Phone Subscriber Number Group Number Insured Name Patient Relationship to Insured Coverage Start Date Coverage End Date [facility] [address] [place], [place] [id number] [phone] [id number] ROMINAANNITA Self - patient is the insured MEDICAID OF [facility] [address] [place] [phone] [id number] ANNITA VANEGAS Self - patient is the insured MEDICAL (GENERAL) HISTORY Medical History History ICD Code Family history of Murry syndrome, MLH-1 genetic testing negative in Ann[place] Colonoscopy 09/03, normal, five-year foll owup EGD, 04/03, normal Surgical History Surgery Date(Month/Year) tubal ligation
--- OUTSIDE RECORDS SUMMARY | 2024-07-28 09:41 | XMS_ITS ---
Author Organization [facility] Address [address] [place] [address] Care Team Providers Care Community Health Program Representative Name Role Phone Irma HOWARD, Lilian Primary Care Provider Raghav vEans Jr [phone] ALLERGIES Allergen (clinical drug ingredient) Drug/Non Drug Allergy documented on EMR Reaction Allergy Type Onset Date Status fluoxetine Prozac Unknown Drug Allergy Active REASON FOR VISIT Patient presents today for a screening colonoscopy MEDICATIONS Medication SIG (Take, Route, Frequency, Duration) Notes Start Date End Date Status MiraLax (colon prep) 17 GM/SCOOP mixed with Gatorade or Crystal Light Orally begin at 5:00 p.m. the day before the procedure for 1 day 07/13/2024 Active IMMUNIZATIONS Vaccine Route Administration Date Status Comme nts Influenza Unknown 07/13/2024 Refused PROBLEMS Problem Type ICD Code Onset Dates Problem Status W/U Status Risk SNOMED Code Notes Problem Personal history of colonic polyps (Z86.0100) Active confirmed 009181732 Problem Family history of colon cancer (Z80.0) Active confirmed 823244224 VITAL SIGNS BMI 42.98 kg/m2 07/13/2024 Blood pressure systolic 001 mm Hg 07/13/19 25 Blood pressure diastolic 01 mm Hg 025 Height 62.5 in 07/13/2024 Temperature 97.8 degrees Fahrenheit 07/13/19 25 Weight 238.8 lbs 07/13/2024 Encounters Encounter Location Date Provider Diagnosis [facility] [address] [place] [address] 07/13/2024 Raghav Dalton Jr Colon cancer screening [...] cancer (ICD-10 - Z80.0) PLAN OF TREATMENT Medication Medication Name Sig Start Date Stop Date Notes MiraLax (colon prep) 17 GM/SCOOP mixed with Gatorade or Crystal Light Orally begin at 5:00 p.m. the day before the procedure for 1 day 07/13/2024 Treatment Notes Assessment Notes Colon cancer screening Colonoscopy mater ial was printed Future Test Test Name Order Date COLONOSCOPY 07/13/2024 Next Appt Details Follow Up: 1 Year, Reason: Provider Name:Raghav wilkins Jr, 07/28/2024 10:30:00 AM, [address] [place] [address] , [place], [place], [phone], Progress Notes * Examination Category Sub-Category Detail Notes General Examination GENERAL APPEARANCE: in no ac aicha distress HEAD: normocephalic EYES: sclera non-icteric NECK/THYROID: no lymphadenopathy HEART: S1, S2 normal, no mu rmurs CHEST: normal shape and exp ansion LUNGS: clear to auscultatio n bilaterally ABDOMEN: soft, nontender, non distended, bowel sounds present, no organomegaly SKIN: anicteric EXTREMITIES: no clubbing, cyanosi s, or edema PSYCH: cognitive function i ntact ORAL CAVITY: mucosa moist
--- OUTSIDE RECORDS SUMMARY | 2024-07-28 09:41 | XMS_ITS | Data Portability ---
Author Organization [place] [facility] Address [address] [place] [address] Care Team Providers Care Floor Covering Contractor Name Role Phone GERTRUDIS SEGOVIAABEL Primary Care Provider Assessment Encounter Date Assessment Date Assessment LastModified by Organization Details LastModified Time 07/09/2018 07/09/2018 23 year-old female with history of hypothyroidism, depression who calls for evaluation of nausea, vomiting. She went to bed feeling fine but woke up at 1am with nausea. She began with vomiting at 8am . She has not been able to keep anything down all day. She has not voided in a few hours. There has been no fevers, rashes, or diarrhea. She denies any abdominal pain, shortness of breath. Not sexually active. LMP last week. Physical exam: BBS: clear, ABD: soft and nontender, resp easy, skin pale warm dry. DDX: acute viral illness, nausea and vomiting, Pt has been sick for less than 24 hours. She appears well overall, with moist mucous membranes. Smiling without difficulty. Moving all extremities well. We checked labs and they are unremarkable. Pt tolerated IV fluids without difficulty and had relief of symptoms with zofran and toradol. Tolerating PO fluids at the end of visit. [place] better. VSS> Pt has PO zofran at home. Reviewed instructions for care at home. Not available 07/09/2018 19:23:15 Plan of Treatment Reminders Order Date Submit Date Provider Last Modified By Organization Details Last Modified Time Details Appointments None recorded. Lab BMP + ionized calcium, serum or plasma 2018 019 [email or web address] [facility], [address] [place] [address], [place], [address], 9 19:13:59 BMP + ionized calcium, serum or plasma 2018 019 [email or web address] [facility], [address] [place], [address], 9 19:13:59 Referral None recorded. Procedures None recorded. Surgeries None recorded. Imaging None recorded. Medication Orders sodium chloride 0.9 % intravenous solution 2018 019 [email or web address] 5 Not available 9 08:05:04 ondansetron HCl (PF) 4 mg/2 mL injection solution 2018 019 [email or web address] 5 Not available 9 08:05:04 ketorolac 30 mg/mL (1 mL) injection solution 2018 019 [email or web address] 5 Not available 9 08:05:04 Patient TargetsNo targets recorded. Patient Instructions Encounter Date Encounter Id Patient Instructions Last Modified By Organization Details Last Modified Time 07/09/2018 [id number] You called us to your home for evaluation of nausea and vomiting. We checked your labs and gave you IV fluids, toradol and zofran. This seemed to help your symptoms. You did not have any other symptoms. You should follow up with your PCP for re-evaluation if you have any recurring symptoms . If you have any fevers, worsening nausea and vomiting, shortness of breath or feel worse, you may have to seek the Emergency Departmnet for evaluation. We gave you a zofran prescription for nausea. Not available 07/09/2018 19:18:49 Reason for Referral None Reported. Results Created Date Observation Date Name Description Value Unit Range Abnormal Flag Note LastModifiedBy Organization Detail LastModifiedTime 07/09/1907/09/2018 BMP + ioniz ed calci um, serum or plasm a Na 143 mmol/ L 136-14 5 Not Available [facility] [address] [place], [address], 07/09/2018 19:11:16 07/09/19 19 07/09/2018 BMP + ioniz ed calci um, serum or plasm a K 4.2 mmol/ L 3.5-5. 1 Not Available [facility] [address] [place], [address], 07/09/2018 19:11:16 07/09/19 19 07/09/2018 BMP + ioniz ed calci um, serum or plasm a cL 102 mmol/ L 96-111 Not Available [facility] [address] [place], [address], 07/09/2018 19:11:16 07/09/19 19 07/09/2018 BMP + ioniz ed calci um, serum or plasm a ica 1.14 mmol/ L 1.1-1. 4 Not Available [facility] [address] [place], [address], 07/09/2018 19:11:16 07/09/1907/09/2018 BMP + ioniz ed calci um, serum or plasm a TCO2 28 mmol/ L 20-30 Not Available [facility] [address] [place], [address], 07/09/2018 19:11:16 07/09/19 19 07/09/2018 BMP + ioniz ed calci um, serum or plasm a glu 122 mg/dL 70-115 Not Available [facility] [address] [place], [address], 07/09/2018 19:11:16 07/09/1907/09/2018 BMP + ioniz ed calci um, serum or plasm a BUN 10 mg/dL 6-24 Not Available [facility] [address] [place], [address], 07/09/2018 19:11:16 07/09/1907/09/2018 BMP + ioniz ed calci um, serum or plasm a crea 0.6 mg/dL .65-1. 36 Not Available [facility] [address] [place], [address], 07/09/2018 19:11:16 07/09/19 19 07/09/2018 BMP + ioniz ed calci um, serum or plasm a HCT 42 %_pcv 40.6-5 0.3 Not Available [facility] [address] [place], [address], 07/09/2018 19:11:16 07/09/19 19 07/09/2018 BMP + ioniz ed calci um, serum or plasm a Hb 14.3 g/dL 13.9-1 7.4 Not Available [facility] [address] [place], [address], 07/09/2018 19:11:16 07/09/19 19 07/09/2018 BMP + ioniz ed calci um, serum or plasm a angap 18 mmol/ L 6-18 Not Available [facility] [address] [place], [address], 07/09/2018 19:11:16 07/10/19 19 07/10/2018 BMP + ioniz ed calci um, serum or plasm a Na mmol/ L 136-14 5 Not Available [facility] [address] [place], [address], 07/09/2018 19:11:47 07/10/19 19 07/10/2018 BMP + ioniz ed calci um, serum or plasm a K mmol/ L 3.5-5. 1 Not Available [facility] [address] [place], [address], 07/09/2018 19:11:47 07/10/1907/10/2018 BMP + ioniz ed calci um, serum or plasm a cL mmol/ L 96-111 Not Available [facility] [address] [place], [address], 07/09/2018 19:11:47 07/10/1907/10/2018 BMP + ioniz ed calci um, serum or plasm a ica mmol/ L 1.1-1. 4 Not Available [facility] [address] [place], [address], 07/09/2018 19:11:47 07/10/19 19 07/10/2018 BMP + ioniz ed calci um, serum or plasm a TCO2 mmol/ L 20-30 Not Available [facility] [address] [place], [address], 07/09/2018 19:11:47 07/10/19 19 07/10/2018 BMP + ioniz ed calci um, serum or plasm a glu mg/dL 70-115 Not Available [facility] [address] [place], [address], 07/09/2018 19:11:47 07/10/19 19 07/10/2018 BMP + ioniz ed calci um, serum or plasm a BUN mg/dL 6-24 Not Available [facility] [address] [place], [address], 07/09/2018 19:11:47 07/10/19 19 07/10/2018 BMP + ioniz ed calci um, serum or plasm a crea mg/dL .65-1. 36 Not Available [facility] [address] [place], [address], 07/09/2018 19:11:47 07/10/19 19 07/10/2018 BMP + ioniz ed calci um, serum or plasm a HCT %_pcv 40.6-5 0.3 Not Available [facility] [address] [place], [address], 07/09/2018 19:11:47 07/10/19 19 07/10/2018 BMP + ioniz ed calci um, serum or plasm a Hb g/dL 13.9-1 7.4 Not Available [facility] [address] [place], [address], 07/09/2018 19:11:47 07/10/19 19 07/10/2018 BMP + ioniz ed calci um, serum or plasm a angap mmol/ L 6-18 Not Available [facility] [address] [place], [address], 07/09/2018 19:11:47 Result Notes None recorded. Procedures Surgical History Date Name Laterality Status Provider Name and Address Organization Details Recorded Time 9 IV Start Procedure - DH completed LUISITO PHELAN, JANINA [address], [place], [address], [place] [facility] 07/09/2018 19:10:43 Imaging Results None recorded. Procedure Notes None recorded. Medical Equipment None Reported. Medications Name Sig Start Date Stop Date Status Note LastModified by Organization Details LastModified Time cyclobenzap rine 10 mg tablet 07/09 completed Not Available Not Available Not Available amoxicillin 500 mg capsule 07/09 completed Not Available Not Available Not Available ibuprofen 800 mg tablet 07/09 completed Not Available Not Available Not Available metronidazo le 0.75 % (37.5 mg/5 gram) vaginal gel 07/09 completed Not Available Not Available Not Available ondansetron HCl 4 mg tablet active Not Available Not Available Not Available sertraline 100 mg tablet active Not Available Not Available Not Available ketorolac 30 mg/mL (1 mL) injection solution 15 mg IV administe red on scene. Time administe red: 1903 2018 active Not Available Not Available Not Avai lable levothyroxi ne 25 mcg tablet active Not Available Not Available Not Available omeprazole 20 mg capsule,del ayed release 07/09 completed Not Available Not Available Not Available sodium chloride 0.9 % intravenous solution Inject 1000 mL by intraveno us route. 2018 active Not Available Not Available Not Avai lable sertraline 50 mg tablet 07/09 completed Not Available Not Available Not Available azithromyci n 500 mg tablet 07/09 completed Not Available Not Available Not Available ondansetron HCl (PF) 4 mg/2 mL injection solution Take 4 mg by injection route. 2018 active Not Available Not Available Not Avai lable [place] 0.1 mg-20 mcg tablet active Not Available Not Available N ot Available Vitals Date Recorded Body temperature Respiratory rate Oxygen saturation Oxygen saturation in Arterial blood by Pulse oximetry Heart rate Respiratory rate Body temperature Oxygen saturation Oxygen saturation in Arterial blood by Pulse oximetry Heart rate Systolic blood pressure Diastolic blood pressure Systolic blood pressure Diastolic blood pressure Provider Name and Address Organization Details Last Updated DateTime 9 99 [degF] 12 /min 100 % 100 % 105 /min 12 /min 98.6 [degF] 99 % 99 % 82 /min 104 mm[Hg] 72 mm[Hg] 104 mm[Hg] 68 mm[Hg] Not Available [facility] 9 19:31:24 Social History Question Answer Notes LastModified by Organizat ion Details LastModified Time Tobacco Smoking Status Never Smoker LUISITO PHELAN NP [address] [place], [address], [place] [facility] 07/09/2018 18:50:08 What Was The Date Of Your Most Recent Tobacco Screening? 07/09/2018 Information not available 01/08/2019 Sex: Unknown Functional Status None recorded. Mental Status None recorded. Family History Nothing Reported. Medical History Condition Response Coronary Artery Disease N Depression Y COPD N Cancer N Asthma N Gynecological HistoryNo gynecological history recorded. Obstetrics History GPAL:G 0 P 0 0 0 0 Past Encounters Encounter ID Performer Location Encounter Start Date Encounter Closed Date Diagnosis/Indication Diagnosis SNOMED-CT Code Diagnosis ICD10 Code Diagnosis Note [id number] LUISITO PHELAN NP [facility] [address] [place] [address] 07/09/2018 18:43:27 07/09/2018 19:33:54 Nausea and vomiting 68196617 R11.2 Generalize d aches and pains 24843339 R52 Health Concerns Section Related Observation LastModified by Organization Detai ls LastModified Time None Recorded Concern Status LastModified by Organization Details LastModified Time None Recorded Advance Directives Directive None Recorded Payers Encounter Date Sequence Insurance Name Policy Number Policy Koch Covered Member ID Koch Member ID Guarantor Name 07/09/2018 1 [facility] [id number] Annita Florez [id number] Annita Florez Notes Date Note Type Note Provider Name and Address Organization Details Recorded Time 07/09/2018 text/html 23 year-old female with history of hypothyroidism, depression who calls for evaluation of nausea, vomiting. She went to bed feeling fine but woke up at 1am with nausea. She began with vomiting at 8am . She has not been able to keep anything down all day. She has not voided in a few hours. There has been no fevers, rashes, or diarrhea. She denies any abdominal pain, shortness of breath. Not sexually active. LMP last week. LUISITO PHELNA NP [address], [place], [address], [place] [facility] 07/09/2018 19:34:29 OBGyn Episode No OBEpisode recorded.
[2024-07-28] MEDS: Lactated Ringers 1,000 ML 100 ML IVCONT (09:49)
--- NOTE | 2024-07-28 11:10 | MHC.SHP ---
Pre-Procedural Eval Section A - 24 Hr Update-Section A only Date of Service: 07/28/24 The patient is an INPATIENT: No Changes since office visit: No Cold of Flu in the past 2 weeks, No New Medical Problems, No Changes in Medication and No Patient answered all questions The patient has been examined within 24 hours of the surgical procedure. The History & Physical has been completed within 30 days and I have reviewed it.: Yes Section B - Complete if H&P > 30 days Chief Complaint: Encounter for screening for malignant neoplasm of Allergies: Allergies Allergy/AdvReac Type Severity Reaction Status Date / Time fluoxetine [From PROZAC] Allergy Unknown UNKNOWN Verified 04/23/22 08:29 Plan I have reviewed the history and physical and performed a pertinent physical examination on my patient. No changes have occurred unless specified. Time Spent With Patient Time: Total time managing care of this patient today ____ minutes.
[2024-07-28 12:00] VITALS: BP 122/66; PULSE 87; RESP 16; TEMP 36.2; O2SAT 96
[2024-07-28 12:15] VITALS: BP 112/74; PULSE 63; RESP 16; O2SAT 99
[2024-07-28 12:30] VITALS: BP 112/66; PULSE 68; RESP 16; O2SAT 100
--- NOTE | 2024-07-28 13:24 | P.BOP_ITS ---
Brief Operative Note Date of Service: 07/28/24 Pre-op diagnosis: screening Post-op diagnosis: same Procedure: colonoscopy Surgeon: Raghav Dalton MD Anesthesia: MAC Was an Metal Riveting Machine Operator used for this Procedure?: No Estimated blood loss (mL): 0 Pathology: none sent Condition: stable Disposition: PACU
--- NOTE | 2024-07-28 19:00 | OP_ITS ---
DATE OF SERVICE: 07/28/2024 SURGEON: Raghav Dalton MD INDICATIONS: Colon cancer screening and prior history of adenomas, colon polyps. PREOPERATIVE DIAGNOSIS: POSTOPERATIVE DIAGNOSIS: PROCEDURE PERFORMED: Colonoscopy to the cecum. ESTIMATED BLOOD LOSS: COMPLICATIONS: ANESTHESIA: Monitored anesthesia care. ASSISTANTS: SPECIMENS: POSTOPERATIVE DIAGNOSES: Normal colonoscopy, limited examination. RECOMMENDATIONS: 1. Follow up as needed. 2. Repeat colonoscopy in short term with a different prep. PROCEDURE DESCRIPTION: The history and physical were performed. The risks and benefits of the procedure were explained to the patient. Informed consent was obtained. The patient was placed in left lateral decubitus position. A digital rectal exam was performed. It was found to be normal. The Olympus pediatric video colonoscope was introduced in the rectum and advanced to the cecum with the assistance of abdominal wall pressure. The cecum was identified by transillumination, palpation, identification of the ileocecal valve. Examination was performed. The scope was removed. She tolerated the procedure, was returned to recovery area in stable condition. FINDINGS: The terminal ileum was not examined. The visualized colonic mucosa was normal. The exam was extremely limited by retained fecal material including formed stool and liquid stool. This was washed and suctioned. No polyps were identified. However, given the limitations of the examination, she will need short-term followup such as repeat colonoscopy in 6 to 12 months with a different prep. Retroflex examination was limited, but normal. MD MEENU Vickers/TRENT / [id number]
== END 2024-07-28 13:25 | disposition home or self-care (01) ==
PROVIDERS: PCP Internal Medicine; Visit Provider Internal Medicine Gastroenterology
PROC: 0DJD8ZZ Inspection of Lower Intestinal Tract, Via Natural or Artificial Opening Endoscopic (ICD-10-PCS; CPT 45378; principal; 2024-07-28 10:30)
DX: Z12.11 Encounter for screening for malignant neoplasm of colon (principal); Z86.0101 Personal history of adenomatous and serrated colon polyps; Z80.0 Family history of malignant neoplasm of digestive organs; E03.9 Hypothyroidism, unspecified; E66.01 Morbid (severe) obesity due to excess calories; Z68.41 Body mass index [BMI] 40.0-44.9, adult
CPT/HCPCS: 45378; J2704; J3010

== ENCOUNTER 2025-03-02 06:24 | Day surgery (SDC) | payer BC, SELFPAY ==
--- OUTSIDE RECORDS SUMMARY | 2025-01-12 16:17 | XMS_ITS | Data Portability ---
Author Organization [place] - [facility], [facility] Address [address] [place] [id number] Care Team Providers Care Retinal Surgeon Name Role Phone TATIANATERRENCENATHAN Primary Care Provider Assessment Encounter Date Assessment [...] PO fluids at the end of visit. [place] better. VSS> Pt has PO zofran at home. Reviewed instructions for care at home. Not available 07/09/2018 19:23:15 Plan of Treatment Reminders Order Date Submit Date Provider Last Modified By Organization Details Last Modified Time Details Appointments None recorded. Lab BMP + ionized calcium, serum or plasma 2018 019 [email or web address], [address] [place] [address], [place], [address], 9 19:13:59 BMP + ionized calcium, serum or plasma 2018 019 [email or web address] [facility], [address] [place], [address], 9 19:13:59 Referral None recorded. Procedures None [...] By Organization Details Last Modified Time 07/09/2018 13060 You called us to your home for [...] Available [facility] [address] [place], [address], 07/09/2018 19:11:16 07/09/19 19 07/09/2018 BMP + ioniz ed calci um, serum or plasm a K 4.2 mmol/ L 3.5-5. 1 Not Available [facility] [address] [place], [address], 07/09/2018 19:11:16 07/09/19 19 07/09/2018 BMP + ioniz ed calci um, serum or plasm a cL 102 mmol/ L 96-111 Not Available [facility] [address] [place], [address], 07/09/2018 19:11:16 07/09/19 19 07/09/2018 BMP + ioniz ed calci um, serum or plasm a ica 1.14 mmol/ L 1.1-1. 4 Not Available [facility] [address] [place], [address], 07/09/2018 19:11:16 07/09/19 19 07/09/2018 BMP + ioniz ed calci um, serum or plasm a TCO2 28 mmol/ L 20-30 Not Available [facility] [address] [place], [address], 07/09/2018 19:11:16 07/09/1907/09/2018 BMP + ioniz ed calci um, serum or plasm a glu 122 mg/dL 70-115 Not Available [facility] [address] [place], [address], 07/09/2018 19:11:16 07/09/19 19 07/09/2018 BMP + ioniz ed calci um, serum or plasm a BUN 10 mg/dL 6-24 Not Available [facility] [address] [place], [address], 07/09/2018 19:11:16 07/09/1907/09/2018 BMP + ioniz ed calci um, serum or plasm a crea 0.6 mg/dL .65-1. 36 Not Available [facility] [address] [place], [address], 07/09/2018 19:11:16 07/09/19 19 07/09/2018 BMP + ioniz ed calci um, serum or plasm a HCT 42 %_pcv 40.6-5 0.3 Not Available [facility] [address] [place], [address], 07/09/2018 19:11:16 07/09/19 19 07/09/2018 BMP + ioniz ed calci um, serum or plasm a Hb 14.3 g/dL 13.9-1 7.4 Not Available [facility] [address] [place], [address], 07/09/2018 19:11:16 07/09/1907/09/2018 BMP + ioniz ed calci um, serum or plasm a angap 18 mmol/ L 6-18 Not Available [facility] [address] [place], [address], 07/09/2018 19:11:16 07/10/1907/10/2018 BMP + ioniz ed calci um, serum or plasm a Na mmol/ L 136-14 5 Not Available [facility] [address] [place], [address], 07/09/2018 19:11:47 07/10/1907/10/2018 BMP + ioniz ed calci um, serum or plasm a K mmol/ L 3.5-5. 1 Not Available [facility] [address] [place], [address], 07/09/2018 19:11:47 07/10/1907/10/2018 BMP + ioniz ed calci um, serum or plasm a cL mmol/ L 96-111 Not Available [facility] [address] [place], [address], 07/09/2018 19:11:47 07/10/1907/10/2018 BMP + ioniz ed calci um, serum or plasm a ica mmol/ L 1.1-1. 4 Not Available [facility] [address] [place], [address], 07/09/2018 19:11:47 07/10/1907/10/2018 BMP + ioniz ed calci um, serum or plasm a TCO2 mmol/ L 20-30 Not Available [facility] [address] [place], [address], 07/09/2018 19:11:47 07/10/19 19 07/10/2018 BMP + ioniz ed calci um, serum or plasm a glu mg/dL 70-115 Not Available [facility] [address] [place], [address], 07/09/2018 19:11:47 07/10/19 19 07/10/2018 BMP + ioniz ed calci um, serum or plasm a BUN mg/dL 6-24 Not Available [facility] [address] [place], [address], 07/09/2018 19:11:47 07/10/19 19 07/10/2018 BMP + ioniz ed calci um, serum or plasm a crea mg/dL .65-1. 36 Not Available [facility] [address] [place], [address], 07/09/2018 19:11:47 07/10/19 19 07/10/2018 BMP + ioniz ed calci um, serum or plasm a HCT %_pcv 40.6-5 0.3 Not Available [facility] [address] [place], [address], 07/09/2018 19:11:47 07/10/19 19 07/10/2018 BMP + ioniz ed calci um, serum or plasm a Hb g/dL 13.9-1 7.4 Not Available [facility] [address] [place], [address], 07/09/2018 19:11:47 07/10/1907/10/2018 BMP + ioniz ed calci um, serum or plasm a angap mmol/ L 6-18 Not Available [facility] [address] [place], [address], 07/09/2018 19:11:47 Result Notes None recorded. Procedures Surgical History Date Name Laterality Status Provider Name and Address Organization Details Recorded Time 9 IV Start Procedure - DH completed LUISITO PHELAN NP [address], [place], [address], [place] - [facility] 07/09/2018 19:10:43 Imaging Results None recorded. Procedure [...] blood by Pulse oximetry Heart rate Systolic And Diastolic Systolic And Diastolic Provider Name and Address Organization Details Last Updated DateTime 9 99 [degF] 12 /min 100 % 100 % 105 /min 12 /min 98.6 [degF] 99 % 99 % 82 /min 104/72 mm[Hg] 104/68 mm[Hg] Not Available [facility] 9 19:31:24 Social History Question Answer Notes LastModified by Organizat ion Details LastModified Time Tobacco Smoking Status Never Smoker LUISITO PHELAN NP [address], [place], [address], [place] [facility] 07/09/2018 18:50:08 What Was [...] SNOMED-CT Code Diagnosis ICD10 Code Diagnosis Note [id number] LUISITO PHELAN NP [facility] [address] [place] [address] 07/09/2018 18:43:27 07/09/2018 19:33:54 Nausea and vomiting 24000474 R11.2 Generalize d aches and pains [id number] R52 Health Concerns Section Related Observation LastModified by Organization Detai ls LastModified Time None Recorded Concern Status LastModified by Organization Details LastModified Time None Recorded Advance Directives Directive None Recorded Payers Insurance Date Sequence Insurance Name Policy Number Policy Koch Covered Member ID Koch Member ID Guarantor Name 07/09/2018 1 [facility] [id number] Annita Florez 07/18/2018 1 [facility] [id number] Annita Florez [id number] Annita Florez 07/09/2018 1 *SELF PAY* Annita Florez [id number] Annita Florez 07/09/2018 1 WILIAM Florez [id number] Annita Florez OBGyn Episode No OBEpisode recorded.
[2025-02-26 15:18] VITALS: BMI 42.9
--- NOTE | 2025-03-01 09:21 | HO.ANESPROP2 ---
Documented by User: An Kramer NP 03/01/25 09:21 HPI - Anesthesia Eval Consult details Narrative: 29yo F for Colonoscopy PMFSH Active Problems Active Problems: All Active Problems Skin lesion of left arm (Acute) at early stage (Acute) Obesity, morbid, BMI 40.0-49.9 (Acute) Bacterial vaginosis (Acute) Family history of ovarian cancer (Acute) Breast mass, right (Acute) Hypothyroidism (Acute) CELESTE I (cervical intraepithelial neoplasia I) (Acute) Past Medical History Medical History Family history of Murry syndrome Family history of ovarian cancer Breast mass, right CELESTE I (cervical intraepithelial neoplasia I) Hypothyroidism Depression Family History Family History Maternal Aunt Colon cancer Maternal Grandmother Colon cancer Uterine cancer Cervical cancer Maternal Grandfather Bladder cancer Family history of problems with anesthesia: No Surgical History Surgical History History of esophagogastroduodenoscopy (EGD) (03/2018) H/O colonoscopy (07/28/24) History of tubal ligation History of Problems with Anesthesia: No Social History Social History Housing: Apartment Are you a primary insurance healthcare consultant to a significant other at home: No Do you presently have visiting nurse or other home services: No Alcohol intake: never Patient Tobacco Use Status: Never used Tobacco e-Cigarette/Vaping Use: Never Used Second Hand Smoke Exposure: No Use of substances other than those prescribed or required for medical reasons: No Have you been hit, kicked, punched, or otherwise hurt by someone within the past year? If so, by whom?: No Are you DNR?: No Advance Directives: No Advance Directives Information Provided: Yes Advance Directives on File: No Patient : No : No Poor oral hygiene: No Current occupational status: employed Gender identity: Female Cognitive needs: No Hearing needs: No Vision needs: Yes Meds Allergies Allergy/AdvReac Type Severity Reaction Status Date / Time fluoxetine (From PROZAC) Allergy Unknown UNKNOWN Verified 04/23/22 08:29 Home Medications ?Medication ?Instructions ?Recorded ?Confirmed ?Last Taken ?Type No Known Home Meds 02/07/25 02/07/25 Unknown History Exam Height,Weight and Vital Signs: Height 5 ft 2.5 in Weight 108.182 kg Assessment and Plan Assessment Anesthesia Assessment: Chart Reviewed Final Anesthetic Review Family History of Problems with Anesthesia: No History of Problems with Anesthesia: No Documented by User: Hannah Jimenez MD 03/02/25 07:34 PMFSH Past Medical History Medical History Family history of Murry syndrome Family history of ovarian cancer Breast mass, right CELESTE I (cervical intraepithelial neoplasia I) Hypothyroidism Depression Family History Family History Maternal Aunt Colon cancer Maternal Grandmother Colon cancer Uterine cancer Cervical cancer Maternal Grandfather Bladder cancer Surgical History Surgical History History of esophagogastroduodenoscopy (EGD) (03/2018) H/O colonoscopy (07/28/24) History of tubal ligation Social History Social History Housing: Apartment Are you a primary insurance healthcare consultant to a significant other at home: No Do you presently have visiting nurse or other home services: No Alcohol intake: never Patient Tobacco Use Status: Never used Tobacco e-Cigarette/Vaping Use: Never Used Second Hand Smoke Exposure: No Use of substances other than those prescribed or required for medical reasons: No Have you been hit, kicked, punched, or otherwise hurt by someone within the past year? If so, by whom?: No Are you DNR?: No Advance Directives: No Advance Directives Information Provided: Yes Advance Directives on File: No Patient : No : No Poor oral hygiene: No Current occupational status: employed Gender identity: Female Cognitive needs: No Hearing needs: No Vision needs: Yes Meds Allergies Allergy/AdvReac Type Severity Reaction Status Date / Time fluoxetine (From [employer]) Allergy Unknown UNKNOWN Verified 04/23/22 08:29 Home Medications ?Medication ?Instructions ?Recorded ?Confirmed ?Last Taken ?Type No Known Home Meds 07/24/24 07/24/24 Unknown History Exam Airway Mallampati Class: II TM Dist: >3cm Neck ROM: Full Loose/Missing/Broken Teeth: No Heart: RRR Lungs: CTA Assessment and Plan Assessment Anesthesia Assessment: Anesthesia Plan Discussed Final Anesthetic Review NPO: Yes ASA Class: II Final Preanesthetic Review: Meds/Allgs Chart Reviewed, Consent Obtained/Reviewed and Anes Risks/Benef Reviewed Patient Risk: Low Procedure Risk: Low Anesthetic Plan Anesthetic Plan: MAC: Disposition: Standard PACU
[2025-03-02 06:34] VITALS: BMI 41.0
[2025-03-02 06:39] VITALS: BP 109/61; PULSE 83; RESP 16; TEMP 36.7; O2SAT 97
[2025-03-02] MEDS: Lactated Ringers 1,000 ML 100 ML IVCONT (06:57)
--- NOTE | 2025-03-02 07:35 | MHC.SHP ---
Pre-Procedural Eval Section A - 24 Hr Update-Section A only Date of Service: 03/02/25 Section B - Complete if H&P > 30 days Chief Complaint: screening,hx colon polyps, Details of Present Illness: see H&P no chanbges Relevant Family History (Specify if Yes): Yes Relevant Social History: None Medical History: No relevant PMH Allergies: Allergies Allergy/AdvReac Type Severity Reaction Status Date / Time fluoxetine (From PROZAC) Allergy Unknown UNKNOWN Verified 04/23/22 08:29 Review of Systems Sugical H&P ROS: Negative: Constitution, Cardiovascular, Respiratory, Neurological, Psychiatric, Hem-Onc, Allergic/Immunologic, Gastrointestinal, Genitourinary, Musculoskeletal, Integumentary, Endocrine and Eyes/Ears/Nose/Throat Exam Surgical H&P Exam: Normal: HEENT, Normal: Heart, Normal: Lungs, Normal: Extremities, Normal: Abdomen, Normal: Skin and Normal: Neurological Plan Diagnosis/Plan: Unchanged I have reviewed the history and physical and performed a pertinent physical examination on my patient. No changes have occurred unless specified. Time Spent With Patient Time: Total time managing care of this patient today ____ minutes.
[2025-03-02 08:12] VITALS: BP 115/81; PULSE 78; RESP 12; TEMP 36.4; O2SAT 98
[2025-03-02 08:27] VITALS: BP 103/53; PULSE 73; RESP 18; TEMP 36.6; O2SAT 100
--- NOTE | 2025-03-02 08:33 | OP_ITS ---
DATE OF SERVICE: 03/02/2025 SURGEON: Raghav Dalton MD INDICATIONS: Colon cancer screening, previous history of adenomatous colon polyps, and family history of colon cancer. PREOPERATIVE DIAGNOSIS: POSTOPERATIVE DIAGNOSIS: PROCEDURE PERFORMED: Colonoscopy to the terminal ileum. ESTIMATED BLOOD LOSS: COMPLICATIONS: ANESTHESIA: Medications, monitored anesthesia care. ASSISTANTS: SPECIMENS: DESCRIPTION OF PROCEDURE: A history and physical were performed. The risks and benefits of the procedure were explained to the patient, and informed consent was obtained. The patient was placed in the left lateral decubitus position. A digital rectal exam was performed and was found to be normal. The Olympus pediatric video colonoscope was introduced into the rectum and advanced to the cecum. The cecum was identified by transillumination, palpation, and identification of the ileocecal valve. Examination was performed. The scope was removed. She tolerated the procedure well and was returned to recovery in stable condition. FINDINGS: The terminal ileum was examined and appeared normal. Visualized colonic mucosa was normal. The quality of the prep was good. No polyps were identified. Retroflexed examination showed some small internal hemorrhoids. IMPRESSION: Normal colonoscopy. RECOMMENDATIONS: 1. Follow up as needed. 2. Repeat colonoscopy is recommended in 5 years because of family history of colon cancer and personal history of colon polyps. MD MEENU Vickers/TRENT / [id number]
== END 2025-03-02 08:50 | disposition home or self-care (01) ==
PROVIDERS: PCP Internal Medicine; Visit Provider Internal Medicine Gastroenterology
PROC: 0DJD8ZZ Inspection of Lower Intestinal Tract, Via Natural or Artificial Opening Endoscopic (ICD-10-PCS; CPT 45378; principal; 2025-03-02 07:30)
DX: Z12.11 Encounter for screening for malignant neoplasm of colon (principal); K64.8 Other hemorrhoids; Z86.0101 Personal history of adenomatous and serrated colon polyps; Z80.0 Family history of malignant neoplasm of digestive organs
CPT/HCPCS: 45378; J2704